=== PATIENT | female | born 1950 | race Caucasian/White ===

== ENCOUNTER 2018-10-14 21:08 | Emergency (ER) | payer MEDICARE, OTHER, BC ==
[2018-10-14] MEDS: OXYCODONE/ACETAMINOPHEN (5/325) TAB PO (23:03)
== END 2018-10-14 23:57 | disposition home or self-care (01) ==
LOC: E/R 21:08
DX: M79.605 Pain in left leg (principal); E03.9 Hypothyroidism, unspecified; F17.210 Nicotine dependence, cigarettes, uncomplicated
CPT/HCPCS: 93971; 99284-25